=== PATIENT | male | born 1975 | race Caucasian/White ===

== ENCOUNTER 2022-07-19 09:14 | Emergency (ER) | payer MEDICAID ==
[~2022-07-19] VITALS: Ht 188 cm; Wt 124.7 kg
--- NOTE | 2022-07-19 09:33 | NUR ---
PAGED SOCIAL AND LEFT VOICEMAIL.
[2022-07-19] MEDS ORDERED: NALO4SPR BNOSTRILS ×2 (09:47→09:50)
[2022-07-19] MEDS ORDERED: CHLO25CA22 PO ×2 (09:47→09:50)
--- NOTE | 2022-07-19 09:47 | NUR ---
IV STARTED. L WRIST 20 G. FLUIDS RUNNING
[2022-07-19] MEDS ORDERED: FOLIC ACID 1 MG TABLET ONE (09:50)
[2022-07-19] MEDS ORDERED: ONDANSETRON HCL/PF 4 MG/2 ML VIAL ONE (09:50)
[2022-07-19] MEDS ORDERED: THIAMINE HCL 100 MG TABLET ONE (09:51)
[2022-07-19] MEDS ORDERED: LORAZEPAM INJ 2 MG/ML VIAL ONE (09:51)
[2022-07-19] MEDS ORDERED: ONDANSETRON HCL/PF 4 MG/2 ML VIAL IV ONE (10:00)
[2022-07-19] MEDS ORDERED: IV NS 0.9% 1,000 ML IV ONE (10:00)
[2022-07-19] MEDS ORDERED: FOLIC ACID 1 MG TABLET PO ONE (10:00)
[2022-07-19] MEDS ORDERED: THIAMINE HCL 100 MG TABLET PO ONE (10:00)
[2022-07-19] MEDS ORDERED: LORAZEPAM INJ 2 MG/ML VIAL IV ONE (10:00)
--- NOTE | 2022-07-19 10:03 | NUR ---
VARUN RUG UNDERLAY MACHINE OPERATOR IS COMING TO SPEAK WITH PT.
--- NOTE | 2022-07-19 10:20 | NUR ---
MEDICAL DOSIMETRIST AT BEDSIDE
--- NOTE | 2022-07-19 11:05 | NUR ---
SS Consult: SS Consult requested for polysubstance use. The pt. is a 47-year-old White male pt. who presented to the ED due to concerns of alcohol withdrawal per EMR. Upon SS consult, the pt. is Alert & Oriented x 4 and makes avoidant eye contact. The pt. appears unkempt. Pt. has redness on left forehead, left elbow abrasions and right arm in sling due to dislocated shoulder per EMR. Pt. has depressed mood & affect. Pt.s speech is low and slow and thought process is WNL. Pt. remained calm & cooperative throughout interview. Pt. denies SI/HI and denies hallucinations. KORTNEY explored pt.s living situation. Patient states he currently lives at home [[address] [place] [address]] alone. KORTNEY explored pt.s drug & ETOH use. Pt. states he drinks alcohol daily and abuses opioids including fentanyl. Pt. states that he cannot specify how much of the substances he has been using as he has been binging. KORTNEY used motivational interviewing and educated pt. on alcohol & drug dependence and offered pt. rehab referral and pt. he is agreeable to referral to [facility]. KORTNEY provided pt. with addiction resources and pt. accepted them. Pt. states that he has recently lost his partner and one of his best friends due to overdose. Pt. may be coping with drug use . KORTNEY also encouraged pt. to seek mental health services and provided referrals to mental health clinicals in the area.Pt. was receptive. KORTNEY formed safety plan with pt. Pt. stated in the event that he feels unsafe at home he will call his best friend, a crisis ine (list provided to pt.) or call 911 for emergency services. Pt. denies current SI or plan. Pt. Pt. denies Hx. of mental illness. Per pt. he is ambulatory independent with all his ADLs. Pt. states he receives [employer] and has no source of income at this time. Pt. states his support system includes his best friend, Jose Angeles. Plan: KORTNEY provided pt. with the following addiction and mental health resources and pt. accepted them. Per pt. he would like to return to home [[address] [facility] [address]] when ready for discharge. KORTNEY faxed clinicals to [facility] FAX:[phone] PHONE:[phone] for drug detox/rehab and they will contact pt. when bed is available. KORTNEY provided pt. with the following MAT resources as pt. stated he use Fentanyl: [facility]: [address] [place] [address] Intake hours: 5:45am9:00am, walk-ins Monday, Monday, [facility]: [address] [place] [address] Intake hours: 5:45am12:30pm, Monday and [facility]: [address] [place] [address] Intake hours: 8:00am2:00pm, Monday through Monday Pt. is at the action phase of treatment. KORTNEY discussed care with Dr. Walker who stated that the pt. preferred to be on Librium as opposed to Suboxone and ppt. cannot be on both, per .KORTNEY provided pt. with the following resources ADDICTION RESOURCES For Drugs and Alcohol [facility] sober living Referrals For Rehabilitation once sober Address:[address] [place] [id number] [facility] Rehabilitation Program [address] [place] [address] Detox/residential [facility] Substance Abuse Helpline ([facility]) Outpatient, residential treatment, recovery support for youth/adults [facility] www.actionfamilycounseling.zeenworld [facility] Teen programs for drug/alcohol education and support [place]. Program for adults, sliding scale provides support and education [employer] www.Khipu Systemsation.org [place]; Detox/residential treatment programs; transition to sober living [facility] www.cri-help.org [place]; Outpatient and residential treatment programs; transition to sober living [facility] TEL: [phone] [facility] [place]; Outpatient education and supportive programs for teens and adults [facility] www.oasiswomensrecovery.org [place]; Residential treatment and work program for females only [place] www.phoKalyra Pharmaceuticalsxhall summit.org [facility]: Outpatient/residential treatment program for teens and young adults [facility] www.[facility].org [place] Detox, inpatient, outpatient for adults and youth [facility], [facility]. [facility]; Outpatient programs and referrals to community residential programs. Alcoholics Anonymous -SFV information and meeting and scheduleswww.aa-intergroup.org Fy-Edux-Ndmsoxx https://al-kari.org/ [place] support groups for family of alcoholics. Marijuana Anonymous www.madistrict6.org -SFV listing of meetings Narcotics Anonymous www.na.org SOBER LIVING RESOURCES [facility] www.soberhousing.net A non-profit agency that provides resources to recovery and sober living homes throughout [facility] Sober Living Homes: A Work in ProgressOneal [facility] Recovery [facility]ocates, [place] [facility] Homes: [facility] x [phone] [place], [place] [facility] Sober Living Homes: [facility] Counseling--Outpatient [facility] [address] [place] [address] (Specializes in in-depth psychotherapy for emotional distress: anxiety, depression, interpersonal conflicts, life transitions, childhood abuse) [facility] [address] [place] [address] (Assist with solving problem marital difficulties, separation & divorce, aging parents, & grief, chronic & terminal illness) [facility] [address] [place] [address] (Deal with loss & grief, anxiety, marital difficulties) Homebound/Mental Health Services [address] [facility] [address] [place] [address] (Provide in-home mental services to people who are incapable of leaving their homes) [facility] for Needs of the Elderly Senior Service/Resource Center [address] [place] [address] [facility] [address] [place] [address] Mental Health Services [facility] [address] [place] [address] Services: Outpatient therapy for children, teens, young adults, adults, older adults, and families; Psychiatric services, medication support Psychiatric Outpatient Services [facility] Partial Hospitalization and Intensive Outpatient Program ([facility] Care and [place] Only)[address] [facility] [phone] [facility] Partial Hospitalization and Outpatient [id number] [facility] [address] [place], [place] [phone] [facility] Mental Health Center [id number] [facility] [address] [place], [place] [phone] [facility] Partial Hospitalization and Outpatient Ehwnxsr54673 [place], [phone] Crisis and Hotline Telephone Numbers 24-Hour service unless stated [place] Crisis Hotlines: [place] Mental Health/Crisis Line........251.877.7959 Suicide Prevention Center (24 Hours).......311.296.8936 Suicide Prevention Crisis Center.......894.181.9603 (24 Hours) Assaults Against Women Hotline.........134.561.4390 (24 Hours -- [facility]) Women and Children Crisis Group Home...........230.565.5473 (24 Hours) Child Abuse Hotline............[phone] [facility] (24 Hours)..........[phone] Alcoholics Anonymous (24 Hours)..........[phone] Cocaine Anonymous (24 Hours)............[phone] Narcotics Anonymous (24 Hours)..........[phone] Chrissie Rocha [facility] [address], [place], [place] [address]
[2022-07-19 11:32] VITALS: BP 142/76
== END 2022-07-19 11:34 | disposition home or self-care (01) ==
LOC: ER 09:14
DX: F10.239 Alcohol dependence with withdrawal, unspecified (principal); F11.23 Opioid dependence with withdrawal; R11.2 Nausea with vomiting, unspecified; I10 Essential (primary) hypertension; Z60.2 Problems related to living alone; Y90.9 Presence of alcohol in blood, level not specified
CPT/HCPCS: 99284; 96374; 96361; 96375; J2060; J2405; J7030